=== PATIENT | male | born 1980 | race African-American/Black ===

== ENCOUNTER 2018-06-30 09:32 | Emergency (ER) | payer BC, SELFPAY ==
--- NOTE | 2018-06-30 09:50 | EDPHYS ---
Physician Documentation [facility] Name: [place] Age: 37 yrs Sex: Male : 1980 Arrival Date: 06/30/2018 Time: 09:37 Bed 14 Private MD: None, None ED Physician Myke Prince HPI: 06/30 09:48 This 37 yrs old Black Male presents to ER via Ambulatory with complaints of Cough. jr8 09:48 The patient or guardian reports cough, that is intermittent, described as mild, with no jr8 sputum. Onset: The symptoms/episode began/occurred acutely, 6 day(s) ago. Severity of symptoms: At their worst the symptoms were mild, in the emergency department the symptoms are unchanged. Modifying factors: The symptoms are alleviated by nothing, the symptoms are aggravated by nothing. Associated signs and symptoms: Pertinent positives: rhinorrhea, sore throat. The patient has not experienced similar symptoms in the past. The patient has not recently seen a physician. Historical: - Allergies: 09:44 No Known Allergies; hb - Home Meds: 09:44 None [Active]; hb - PMHx: 09:44 None; hb - PSHx: 09:44 None; hb - Immunization history:: Adult Immunizations up to date. - Social history:: Smoking status: Patient/guardian denies using tobacco. - Ebola Screening: : No symptoms or risks identified at this time. ROS: 09:48 Eyes: Negative for injury, pain, redness, and discharge, Neck: Negative for injury, jr8 pain, and swelling, Cardiovascular: Negative for chest pain, palpitations, and edema, Abdomen/GI: Negative for abdominal pain, nausea, vomiting, diarrhea, and constipation, Back: Negative for injury and pain, MS/Extremity: Negative for injury and deformity, Skin: Negative for injury, rash, and discoloration, Neuro: Negative for headache, weakness, numbness, tingling, and seizure. 09:48 ENT: Positive for rhinorrhea, sinus congestion, sore throat. 09:48 Respiratory: Positive for cough, Negative for dyspnea on exertion, shortness of breath, sputum production, wheezing. Exam: 09:48 Eyes: Pupils equal round and reactive to light, extra-ocular motions intact. Lids and jr8 lashes normal. Conjunctiva and sclera are non-icteric and not injected. Cornea within normal limits. Periorbital areas with no swelling, redness, or edema. ENT: Nares patent. No nasal discharge, no septal abnormalities noted. Tympanic membranes are normal and external auditory canals are clear. Oropharynx with no redness, swelling, or masses, exudates, or evidence of obstruction, uvula midline. Mucous membranes moist. Neck: Trachea midline, no thyromegaly or masses palpated, and no cervical lymphadenopathy. Supple, full range of motion without nuchal rigidity, or vertebral point tenderness. No Meningismus. Cardiovascular: Regular rate and rhythm with a normal S1 and S2. No gallops, murmurs, or rubs. Normal PMI, no JVD. No pulse deficits. Respiratory: Lungs have equal breath sounds bilaterally, clear to auscultation and percussion. No rales, rhonchi or wheezes noted. No increased work of breathing, no retractions or nasal flaring. Abdomen/GI: Soft, non-tender, with normal bowel sounds. No distension or tympany. No guarding or rebound. No evidence of tenderness throughout. Back: No spinal tenderness. No costovertebral tenderness. Full range of motion. Skin: Warm, dry with normal turgor. Normal color with no rashes, no lesions, and no evidence of cellulitis. MS/ Extremity: Pulses equal, no cyanosis. Neurovascular intact. Full, normal range of motion. Neuro: Awake and alert, GCS 15, oriented to person, place, time, and situation. Cranial nerves II-XII grossly intact. Motor strength 5/5 in all extremities. Sensory grossly intact. Cerebellar exam normal. Normal gait. Vital Signs: 09:43 BP 146 / 83; Pulse 82; Resp 16; Temp 97.6(TE); Pulse Ox 97% on R/A; Pain 1/10; hb MDM: 09:44 Patient medically screened. jr8 09:48 Data reviewed: vital signs, nurses notes, and as a result, I will discharge patient. jr8 Data interpreted: Pulse oximetry: on room air is 97 %. Interpretation: normal. Counseling: I had a detailed discussion with the patient and/or guardian regarding: the historical points, exam findings, and any diagnostic results supporting the discharge/admit diagnosis, the need for outpatient follow up, a family practitioner, to return to the emergency department if symptoms worsen or persist or if there are any questions or concerns that arise at home. Administered Medications: No medications were administered Disposition: 14:06 Co-signature as Attending Physician, Myke Prince MD. Disposition: 06/30/18 09:49 Discharged to Home. Impression: Acute upper respiratory infection, unspecified. - Condition is Stable. - Discharge Instructions: Upper Respiratory Infection, Adult. - Prescriptions for Prednisone 20 mg Oral Tablet - take 1 tablet by ORAL route once daily for 5 days; 5 tablet. Guaifenesin AC 10- 100 mg/5 mL Oral Liquid - take 10 milliliter by ORAL route every 4 hours As needed; 240 milliliter. - Medication Reconciliation Form, Thank You Letter, Antibiotic Education, Prescription Opioid Use form. - Follow up: Private Physician; When: As needed; Reason: Recheck today's complaints, Continuance of care, Re-evaluation by your physician. - Problem is new. - Symptoms are unchanged. Signatures: Vadim Sher, PATROL SERGEANT SHERIFF'S OFFICE PATROL SERGEANT [employer]ERIFF'S OFF[employer] em Kyaw Curtis PA PA jr8 Santa Downey RN RN Myke Prince MD MD Corrections: (The following items were deleted from the chart) 10:00 09:49 06/30/2018 09:49 Discharged to Home. Impression: Acute upper respiratory em infection, unspecified. Condition is Stable. Forms are Medication Reconciliation Form, Thank You Letter, Antibiotic Education, Prescription Opioid Use. Follow up: Private Physician; When: As needed; Reason: Recheck today's complaints, Continuance of care, Re-evaluation by your physician. Problem is new. Symptoms are unchanged. jr8
--- NOTE | 2018-06-30 09:50 | ER ---
Nurse's Notes [facility] Name: [place] Age: 37 yrs Sex: Male : 1980 Arrival Date: 06/30/2018 Time: 09:37 Bed 14 Private MD: None, None Diagnosis: Acute upper respiratory infection, unspecified Presentation: 06/30 09:42 Presenting complaint: Nonproductive cough and pain with cough x 1 week. Denies fever. hb Transition of care: patient was not received from another setting of care. Onset of symptoms was June 25, 2018. Risk Assessment: Do you want to hurt yourself or someone else? Patient reports no desire to harm self or others. Initial Sepsis Screen: Does the patient meet any 2 criteria? No. Patient's initial sepsis screen is negative. Does the patient have a suspected source of infection? No. Patient's initial sepsis screen is negative. Care prior to arrival: None. 09:42 Method Of Arrival: Ambulatory hb 09:42 Acuity: ADRIANA 4 hb Historical: - Allergies: 09:44 No Known Allergies; hb - Home Meds: 09:44 None [Active]; hb - PMHx: 09:44 None; hb - PSHx: 09:44 None; hb - Immunization history:: Adult Immunizations up to date. - Social history:: Smoking status: Patient/guardian denies using tobacco. - Ebola Screening: : No symptoms or risks identified at this time. Screenin:44 Abuse screen: Denies threats or abuse. Denies injuries from another. Nutritional hb screening: No deficits noted. Tuberculosis screening: No symptoms or risk factors identified. Fall Risk None identified. Assessment: 09:51 General: Appears in no apparent distress. comfortable, Behavior is calm, cooperative. iw Pain: Denies pain. Neuro: Level of Consciousness is awake, alert, obeys commands, Oriented to person, place, time, situation, Moves all extremities. Full function. Cardiovascular: Heart tones S1 S2 present. Respiratory: Airway is patent Breath sounds are clear bilaterally. GI: Abdomen is non-distended. Derm: Skin is intact, is healthy with good turgor. Musculoskeletal: Range of motion: intact in all extremities. Vital Signs: 09:43 BP 146 / 83; Pulse 82; Resp 16; Temp 97.6(TE); Pulse Ox 97% on R/A; Pain 1/10; hb ED Course: 09:37 Patient arrived in ED. mr 09:37 None, None is Private Physician. mr 09:40 Maegan Velez, RN is Primary Nurse. iw 09:43 Triage completed. hb 09:43 Arm band placed on left wrist. hb 09:44 [facility] jr8 09:44 Myke Prince MD is Attending Physician. jr8 09:58 No provider procedures requiring assistance completed. Patient did not have IV access em during this emergency room visit. 09:59 Patient has correct armband on for positive identification. Bed in low position. Call em light in reach. Administered Medications: No medications were administered Outcome: 09:49 Discharge ordered by . jr8 09:58 Discharged to home ambulatory. em 09:58 Condition: good 09:58 Discharge instructions given to patient, Instructed on discharge instructions, follow up and referral plans. medication usage, Demonstrated understanding of instructions, follow-up care, medications, Prescriptions given X 2. 10:00 Patient left the ED. em Signatures: Jennifer Ji mr Sher, Vadim, CASH ACCOUNTANT CASH ACCOUNTANT em Maegan Velez, RN RN Kyaw Curtis PA PA jr Santa Downey RN RN
== END 2018-06-30 10:00 | disposition home or self-care (01) ==
LOC: ER 09:32
DX: J06.9 Acute upper respiratory infection, unspecified (principal)
CPT/HCPCS: 99282

== ENCOUNTER 2018-09-03 15:09 | Emergency (ER) | payer SELFPAY ==
--- OUTSIDE RECORDS SUMMARY | 2018-09-03 15:12 | XMS REPORT ---
:1980 [facility] [address] [place] [address] Care Team Providers Name Role Phone Unavailable Unavailable Unavailable Problems This patient has no known problems. Allergies, Adverse Reactions, Alerts This patient has no known allergies or adverse reactions. Medications This patient has no known medications.
[2018-09-03] MEDS ORDERED: MORPHINE 4 MG/ML SYR ONE (16:15)
[2018-09-03] MEDS ORDERED: LIDOCAINE 1% MPF 5 ML VIAL ONE (16:15)
[2018-09-03] MEDS ORDERED: BUPIVACAINE 0.5% PF 10 ML VIAL ONE (16:16)
[2018-09-03] MEDS ORDERED: ONDANSETRON 4 MG/2 ML VIAL ONE (16:16)
[2018-09-03 16:22] LABS: Absolute Lymphocytes (CBC) 2.1 K/uL (0.7-4.9); Absolute Monocytes 0.6 K/uL (0.1-1.3); Absolute Neutrophil 4.8 K/uL (1.8-8.0); Basophils % 0.8 % (0-1.3); Eosinophils % 2.5 % (0-4.4); Hematocrit 43.3 % (39.6-49.0); Lymphocytes % 26.7 % (15.3-44.8); MPV 7.6 fL (7.6-11.3); Monocytes % 7.8 % (3.3-12.3); RBC Red Blood Cell Count 4.72 M/uL (4.33-5.43)
[2018-09-03 16:55] LABS: Potassium 3.6 mmol/L (3.5-5.1)
[2018-09-03] MEDS ORDERED: HYDROCODONE/APAP 10/325 TAB ONE (17:04)
[2018-09-03] MEDS ORDERED: CLINDAMYCIN 900MG/D5W 900 MG/50 ML IVPB IV ONE (17:04)
[2018-09-03] MEDS ORDERED: SMZ./TMP. 800/160 MG TABLET ONE (17:04)
--- NOTE | 2018-09-03 17:37 | ER ---
Nurse's Notes [facility] Name: [place] Age: 37 yrs Sex: Male : 1980 Arrival Date: 09/03/2018 Time: 15:12 Bed 16 Private MD: None, None Diagnosis: Pilonidal cyst with abscess Presentation: 09/03 15:16 Presenting complaint: Patient states: Abscess left side of gluteal cleft, reports pain sg and redness, denies fever, denies nausea/vomiting/diarrhea. Transition of care: patient was not received from another setting of care. Onset of symptoms was September 03, 2018. Risk Assessment: Do you want to hurt yourself or someone else? Patient reports no desire to harm self or others. Initial Sepsis Screen: Does the patient meet any 2 criteria? No. Patient's initial sepsis screen is negative. Care prior to arrival: None. 15:16 Method Of Arrival: Ambulatory sg 15:16 Acuity: ADRIANA 3 sg 15:23 Initial Sepsis Screen: Does the patient have a suspected source of infection? Yes: Skin hj breakdown/wound. Triage Assessment: 15:22 General: Appears in no apparent distress. uncomfortable, Behavior is calm, cooperative, hj appropriate for age. Pain: Complains of pain in buttocks. Historical: - Allergies: 15:16 No Known Allergies; sg - Home Meds: 15:19 None [Active]; sg - PMHx: 15:19 None; sg - PSHx: 15:16 None; sg - Immunization history:: Adult Immunizations not up to date. - Social history:: Smoking status: Patient/guardian denies using tobacco. - Ebola Screening: : Patient negative for fever greater than or equal to 101.5 degrees Fahrenheit, and additional compatible Ebola Virus Disease symptoms Patient denies exposure to infectious person Patient denies travel to an Ebola-affected area in the 21 days before illness onset No symptoms or risks identified at this time. Screenin:22 Abuse screen: Denies threats or abuse. Denies injuries from another. Nutritional hj screening: No deficits noted. Tuberculosis screening: No symptoms or risk factors identified. Fall Risk None identified. Assessment: 15:16 General: Appears in no apparent distress. uncomfortable, Behavior is calm, cooperative, hj appropriate for age. Pain: Complains of pain in buttocks. Neuro: Level of Consciousness is awake, alert, obeys commands, Oriented to person, place, time, situation, Appropriate for age. Cardiovascular: Capillary refill < 3 seconds Patient's skin is warm and dry. Respiratory: Airway is patent Respiratory effort is even, unlabored, Respiratory pattern is regular, symmetrical. GI: No signs and/or symptoms were reported involving the gastrointestinal system. : No signs and/or symptoms were reported regarding the genitourinary system. EENT: No signs and/or symptoms were reported regarding the EENT system. Derm: Abscess located on buttocks. Musculoskeletal: No signs and/or symptoms reported regarding the musculoskeletal system. 16:30 Reassessment: Patient and/or family updated on plan of care and expected duration. Pain hj level reassessed. Patient is alert, oriented x 3, equal unlabored respirations, skin warm/dry/pink. I\T\D performed by JOHANNA Dodge;. 17:23 Reassessment: Patient and/or family updated on plan of care and expected duration. Pain hj level reassessed. Patient is alert, oriented x 3, equal unlabored respirations, skin warm/dry/pink. non adhesive dressing applied with micro foam tape;. Vital Signs: 15:19 Weight 113.4 kg; Height 5 ft. 9 in. (175.26 cm); Pain 7/10; sg 15:25 BP 147 / 77; Pulse 74; Resp 17; Temp 97.7; Pulse Ox 99% on R/A; sg 16:35 BP 125 / 78; Pulse 75; Resp 18; Pulse Ox 100% on R/A; hj 17:23 BP 132 / 75; Pulse 76; Resp 18; Pulse Ox 100% on R/A; hj 15:19 Body Mass Index 36.92 (113.40 kg, 175.26 cm) sg ED Course: 15:12 Patient arrived in ED. sb2 15:12 None, None is Private Physician. sb2 15:16 Arm band placed on. sg 15:19 Triage completed. sg 15:22 Aditya Lopes, SARAH is Primary Nurse. hj 15:23 Cornelio Dodge PA is PHCP. cp 15:23 Myke Prince MD is Attending Physician. cp 15:23 Patient has correct armband on for positive identification. Bed in low position. Call hj light in reach. Side rails up X 1. Adult w/ patient. 17:35 Sebastian Gilman MD is Referral Physician. cp 17:46 No provider procedures requiring assistance completed. IV discontinued, intact, hj bleeding controlled, No redness/swelling at site. Pressure dressing applied. Administered Medications: 16:05 Drug: morphine 4 mg Route: IVP; Site: right antecubital; hj 16:29 Follow up: Response: No adverse reaction; Pain is decreased hj 16:05 Drug: Zofran 4 mg Route: IVP; Site: right antecubital; hj 16:29 Follow up: Response: No adverse reaction hj 16:30 Drug: Lidocaine-Epinephrine -1%: (1:100,000) 5 ml Volume: 20 ml; Route: Infiltration; hj 16:30 Drug: Marcaine (0.5 %) 5 ml Volume: 10 ml; Route: Infiltration; hj 16:51 Drug: Clindamycin 900 mg Route: IVPB; Infused Over: 30 mins; Site: right antecubital; hj 17:05 Follow up: IV Status: Completed infusion hj 16:52 Drug: Bactrim (160 mg-800 mg (DS) 1 tablet Route: PO; hj 17:05 Follow up: Response: No adverse reaction hj 16:52 Drug: HYDROcodone-acetaminophen 10 mg-325 mg 1 tabs Route: PO; hj 17:04 Follow up: Response: No adverse reaction; Pain is decreased hj Outcome: 17:36 Discharge ordered by MD. cp 17:46 Discharged to home ambulatory, with family. hj 17:46 Condition: stable 17:46 Discharge instructions given to patient, family, Instructed on discharge instructions, follow up and referral plans. medication usage, wound care, Demonstrated understanding of instructions, follow-up care, medications, wound care, Prescriptions given X 3. 17:49 Patient left the ED. hj Addendum: 09/07/2018 07:53 Addendum: Culture Results: Positive wound culture. Checked on patient over the phone a a5 per Lina Ross NP. Pt states feeling better, pt states he is continuing to take antibiotics prescribed, pt encouraged to follow-up with PCP, pt verbalized understanding. Signatures: Alex Ferrari RN RN Lucia Naranjo RN RN aa5 Aditya Lopes RN RN Cornelio Dodge PA PA cp Billeau, Gwen sb2
--- NOTE | 2018-09-03 17:37 | EDPHYS ---
Physician Documentation [facility] Name: [place] Age: 37 yrs Sex: Male : 1980 Arrival Date: 09/03/2018 Time: 15:12 Bed 16 Private MD: None, None ED Physician Myke Prince HPI: 09/03 16:00 This 37 yrs old Black Male presents to ER via Ambulatory with complaints of Abscess. cp 16:00 The patient presents with an abscess of the buttocks, the patient presents with a cp swollen area of the buttocks. 16:00 Onset: The symptoms/episode began/occurred gradually. cp 16:00 Possible cause(s): unknown. Associated signs and symptoms: Pertinent negatives: cp discharge, drainage, fever. Severity of symptoms: in the emergency department the symptoms are unchanged, despite home interventions. Historical: - Allergies: 15:16 No Known Allergies; sg - Home Meds: 15:19 None [Active]; sg - PMHx: 15:19 None; sg - PSHx: 15:16 None; sg - Immunization history:: Adult Immunizations not up to date. - Social history:: Smoking status: Patient/guardian denies using tobacco. - Ebola Screening: : Patient negative for fever greater than or equal to 101.5 degrees Fahrenheit, and additional compatible Ebola Virus Disease symptoms Patient denies exposure to infectious person Patient denies travel to an Ebola-affected area in the 21 days before illness onset No symptoms or risks identified at this time. ROS: 16:05 Skin: Positive for abscess, of the buttocks. cp 16:05 Eyes: Negative for injury, pain, redness, and discharge. cp 16:05 Constitutional: Negative for body aches, chills, fever, poor PO intake. 16:05 ENT: Negative for drainage from ear(s), ear pain, sore throat, difficulty swallowing, difficulty handling secretions. 16:05 Respiratory: Negative for cough, shortness of breath, wheezing. 16:05 Abdomen/GI: Negative for abdominal pain, nausea, vomiting, and diarrhea. 16:05 Neuro: Negative for altered mental status, headache, weakness. 16:05 All other systems are negative. Exam: 16:15 Constitutional: The patient appears in no acute distress, alert, awake, non-toxic, well cp developed, well nourished, uncomfortable. 16:15 Head/Face: Normocephalic, atraumatic. cp 16:15 Eyes: Periorbital structures: appear normal, Conjunctiva: normal, Lids and lashes: appear normal, bilaterally. 16:15 ENT: External ear(s): are unremarkable, Nose: is normal, Mouth: is normal, Posterior pharynx: is normal, airway is patent. 16:15 Chest/axilla: Inspection: normal. 16:15 Cardiovascular: Rate: normal. 16:15 Respiratory: the patient does not display signs of respiratory distress, Respirations: normal, no use of accessory muscles, no retractions, no splinting, no tachypnea, labored breathing, is not present. 16:15 Abdomen/GI: Exam negative for discomfort, distension, guarding, Inspection: abdomen appears normal. 16:15 Skin: abscess, that is moderate sized, of the buttocks, with fluctuance, that is mild, with induration. Vital Signs: 15:19 Weight 113.4 kg; Height 5 ft. 9 in. (175.26 cm); Pain 7/10; sg 15:25 BP 147 / 77; Pulse 74; Resp 17; Temp 97.7; Pulse Ox 99% on R/A; sg 16:35 BP 125 / 78; Pulse 75; Resp 18; Pulse Ox 100% on R/A; hj 17:23 BP 132 / 75; Pulse 76; Resp 18; Pulse Ox 100% on R/A; hj 15:19 Body Mass Index 36.92 (113.40 kg, 175.26 cm) sg Procedures: 16:53 I \T\ D: Incision and drainage was performed for an abscess of the pilonidal cyst Prepped cp with Betadine, Anesthetized with 7 ccs of 50/50 mixture 1% lidocaine with epi and 0.5% marcaine. MDM: 15:23 Patient medically screened. cp 17:35 Data reviewed: vital signs, nurses notes, and as a result, I will discharge patient. cp 17:35 Response to treatment: the patient's symptoms have markedly improved after treatment. cp 09/03 15:59 Order name: CBC with Diff cp 09/03 15:59 Order name: BMP cp 09/03 16:25 Order name: CBC with Automated Diff; Complete Time: 21:32 EDMS 09/03 21:32 Interpretation: Reviewed. cp 09/03 16:56 Order name: Basic Metabolic Panel; Complete Time: 21:32 EDMS 09/03 21:33 Interpretation: Normal except: CO2 34; GFR 81. cp 09/03 17:04 Order name: Wound Culture hj 09/03 15:59 Order name: IV; Complete Time: 16:04 cp 09/03 15:59 Order name: I\T\D Setup; Complete Time: 16:11 cp Administered Medications: 16:05 Drug: morphine 4 mg Route: IVP; Site: right antecubital; hj 16:29 Follow up: Response: No adverse reaction; Pain is decreased hj 16:05 Drug: Zofran 4 mg Route: IVP; Site: right antecubital; hj 16:29 Follow up: Response: No adverse reaction hj 16:30 Drug: Lidocaine-Epinephrine -1%: (1:100,000) 5 ml Volume: 20 ml; Route: Infiltration; hj 16:30 Drug: Marcaine (0.5 %) 5 ml Volume: 10 ml; Route: Infiltration; hj 16:51 Drug: Clindamycin 900 mg Route: IVPB; Infused Over: 30 mins; Site: right antecubital; hj 17:05 Follow up: IV Status: Completed infusion hj 16:52 Drug: Bactrim (160 mg-800 mg (DS) 1 tablet Route: PO; hj 17:05 Follow up: Response: No adverse reaction hj 16:52 Drug: HYDROcodone-acetaminophen 10 mg-325 mg 1 tabs Route: PO; hj 17:04 Follow up: Response: No adverse reaction; Pain is decreased Disposition: 09/03/18 17:36 Discharged to Home. Impression: Pilonidal cyst with abscess. - Condition is Stable. - Discharge Instructions: Incision and Drainage, Pilonidal Cyst, Incision and Drainage of a Pilonidal Cyst, Care After, Form - Excuse from Work, School, or Physical Activity. - Prescriptions for Clindamycin HCl 300 mg Oral Capsule - take 1 capsule by ORAL route every 6 hours for 10 days; 40 capsule. Tylenol- Codeine #3 300-30 mg Oral Tablet - take 2 tablets by ORAL route every 6 hours As needed no driving while taking medication; 20 tablet. Bactrim DS 800- 160 mg Oral Tablet - take 1 tablet by ORAL route every 12 hours for 10 days; 20 tablet. - Work release form, Medication Reconciliation Form, Thank You Letter, Antibiotic Education, Prescription Opioid Use form. - Follow up: Sebastian Gilman MD; When: 2 - 3 days; Reason: Wound Recheck. - Problem is new. - Symptoms have improved. Addendum: 09/06/2018 01:35 Co-signature as Attending Physician, Myke Prince MD. g s Signatures: Dispatcher [employer] EDMS Alex Ferrari RN RN Aditya Lopes RN RN Cornelio Beaver PA PA cp Myke Prince MD MD Corrections: (The following items were deleted from the chart) 09/03 17:49 17:36 09/03/2018 17:36 Discharged to Home. Impression: Pilonidal cyst with abscess. hj Condition is Stable. Forms are Medication Reconciliation Form, Thank You Letter, Antibiotic Education, Prescription Opioid Use. Follow up: Dr. Sebastian Gilman; When: 2 - 3 days; Reason: Wound Recheck. Problem is new. Symptoms have improved. cp
== END 2018-09-03 17:49 | disposition home or self-care (01) ==
LOC: ER 15:09
PROC: 0H98XZZ Drainage of Buttock Skin, External Approach (ICD-10-PCS; principal; 2018-09-03)
DX: L05.01 Pilonidal cyst with abscess (principal)
CPT/HCPCS: 36415; 80048; 85025; 87070; 87077; 87186; 87205; 96374; 96375; 99283; J2405

== ENCOUNTER 2021-12-05 09:38 | Emergency (ER) | payer BC, SELFPAY ==
--- OUTSIDE RECORDS SUMMARY | 2021-12-05 09:42 | XMS REPORT | Continuity of Care Document ---
:1980 Author Organization [facility] t Address [address] [place] [address] Care Team Providers Name Role Phone PCP, DOES NOT HAVE A Primary Care Physician Unavailable Damaris SMITH, T Attending Clinician Unavailable Only, Db Test Attending Clinician Unavailable Unknown Attending Clinician Unavailable BOWEN Attending Clinician Unavailable Jay Jay Attending Clinician Unavailable Physician, Primary or Family Admitting Clinician Unavailabl e Payers Payer Name Policy Type Policy Number Effective Date Expiration Date S ource Problems This patient has no known problems. Allergies, Adverse Reactions, Alerts Allergy Allergy Status Severity Reaction(s) Onset Inactive Treating Comm ents Source Name Type Date Date Clinician No Known DA Active U 2016-0 [facility] 00:00: Anderson 00 [facility] No Known DA Active U 2017-0 [facility] Allergie - Clear s 00:00: Anderson 00 [facility] NO KNOWN Drug Active Univers ALLERGIE Class ity of [facility] Social History Social Habit Start Date Stop Date Quantity Comments Source Exposure to Yes [facility] SARS-CoV-2 (event) Medica l Branch Sex Assigned At [birth year] [facility] 00:00:00 00:00:00 [facility] Smoking Status Start Date Stop Date Source Unknown if ever smoked [facility] Medications Ordered Filled Start Stop Current Ordering Indication Dosage Frequency Signature Comments Components Source Medication Medication Date Date Medication? Clinician (SIG) Name Name wilbur 2018- Yes 5mL Take 5 mL U nivers ifenesin 2-28 by mouth ity of 10-100 mg/5 00:00: every 6 Bao as mL solution 00 (six) Medical hours as Branch needed for Cough. codeine-gua 2017- Yes 5mL Take 5 mL U nivers ifenesin 2-28 by mouth ity of 10-100 mg/5 00:00: every 6 Bao as mL solution 00 (six) Medical hours as Branch needed for Cough. Procedures This patient has no known procedures. Encounters Start End Encounter Admission Attending Care Care Encounter Source Date/Time Date/Time Type Type Clinicians Facility Department ID 2020-04-10 Inpatient [facility] [id number] [facility] 00:08:00 [id number] [facility] 2021-08-25 2021-08-25 Letter KAYLIE Ocampo [id number] Univers 00:00:00 00:00:00 (Out) Gail KWOK [id number] it y of [facility] [id number] Bao as [id number] [address] 2021-08-23 2021-08-23 Laboratory Only, Ang Db Test [facility] 1.2.8 [id number] [id number] Univers 12:45:00 13:00:00 Only Unknown, Attending HEALTH [id number] ity [facility] [id number] Bao as MARLA?BLEA [phone] [address] MEDICAL OFFICE BUILDING 2021-08-23 2021-08-23 Outpatient Jolene [facility] [id number] Univers 12:45:00 12:32:43 FRANCIS ity of [facility] 2020-04-11 2020-04-11 Outpatient TREMAYNE GoyalCL LABO [id number] [facility] 06:52:00 06:52:00 Serenity [id number] Psychiatric Results Test Description Test Time Test Comments Results Result Comments Source BASIC METABOLIC PANEL 2020-04-11 06:03:00 Test Item Value Reference Range Interpretation Comme nts SODIUM (test code = NA) 141 mmol/L 134-147 N POTASSIUM (test code = K) 3.6 mmol/L 3.4-5.0 N CHLORIDE (test code = CL) 108 mmol/L 100-108 N CARBON DIOXIDE (test code = CO2) 29 mmol/L 21-32 N ANION GAP (test code = GAP) 4.0 GAP calc 4.0-15.0 N GLUCOSE (test code = GLU) 99 MG/DL 70-110 N BLOOD UREA NITROGEN (test code = BUN) 12 MG/DL 7-18 N GLOMERULAR FILTRATION RATE (test code = GFR) >=60 max estimate estG FR >60 CREATININE (test code = CREAT) 0.8 MG/DL 0.8-1.3 N CALCIUM (test code = CA) 7.9 MG/DL 8.5-10.1 L CREATINE KINASE (CK)2020-04-11 06:03:00 Test Item Value Reference Range Interpretation Comments CREATINE KINASE (CK) (test code = 494 Unit/L 26-192 H CK) [id number] 13:53:00 Test Item Value Reference Range Interpretation Comments GLYCOSYLATED HEMOGLOBIN (HA1C) 5.3 % A1C 0.0-5.7 N (test code = GLYHGB) ESTIMATED AVERAGE GLUCOSE (test 105 MG/DLest code = EAG) LIPID PROFILE (CORONARY RISK)2020-04-10 13:40:00 Test Item Value Reference Range Interpretation Comments TRIGLYCERIDES (test code = TRIG) 88 MG/DL 0-150 N CHOLESTEROL (test code = CHOL) 197 MG/DL 133-200 N CHOLESTEROL/HDL RATIO (test code = 4.93 RATIO >0 CHOLHDL) HDL CHOLESTEROL (test code = HDL) 40 MG/DL 40-59 N NON-HDL CHOLESTEROL (test code = 157 mg/dL <130 H NHDL) LIPOPROTEIN LDL (test code = LDL) 154 MG/DL 0-129 H LDL/HDL (test code = LDL/HDL) 3.85 Ratio 1.48-3.22 Avg H DRUGS OF ABUSE SCREEN [id number] 12:04:00 Test Item Value Reference Range Interpretation Comments URN COCAINE (test code = NEGATIVE SCcutoff <300 NG/ML COCAURN) URN CANNABINOIDS (test code NEGATIVE SCcutoff <50 NG/ML = CANNABURN) URN AMPHETAMINE (test code NEGATIVE SCcutoff <1000 NG/ML = AMPHETURN) URN BARBITURATE (test code NEGATIVE SCcutoff <200 NG/ML = BARBITURN) URN BENZODIAZEPINE (test NEGATIVE SCcutoff <200 NG/ML code = BENZOURN) URN OPIATES (test code = NEGATIVE SCcutoff <2000 NG/ML OPIATURN) URN PHENCYCLIDINE (PCP) NEGATIVE SCcutoff <25 NG/ML (test code = PHENCURN) URN METHADONE (test code = NEGATIVE SCcutoff <300 NG/ML METHAURN) [id number] 10:17:00 Test Item Value Reference Range Interpretation Comments ALCOHOL (test code = ALC) 6 MG/DL 0-10 N [id number] 06:54:00 Test Item Value Reference Range Interpretation Comments TROPONIN-I (test < 0.015 NG/ML 0.000-0.045 N Negative: </= 0.045 code = TROPI) Positive: >/= 0.046 Correlation wit h serial results, other cardiac markers, and cl inical findings is nec essary to determine the c linical significance of this result. Quantit ative results using d ifferent methodologies s hould not be compared to one another as nume rical results may agapito yby method. Completed by Nursing: [id number] 03:48:00 Test Item Value Reference Range Interpretation Comments TROPONIN-I (test < 0.015 NG/ML 0.000-0.045 N Negative: </= 0.045 code = TROPI) Positive: >/= 0.046 Correlation wit h serial results, other cardiac markers, and cl inical findings is nec essary to determine the c linical significance of this result. Quantit ative results using d ifferent methodologies s hould not be compared to one another as nume rical results may agapito yby method. Completed by Nursing: NOCOVID 19 INHOUSE [id number] 01:15:00 Test Item Value Reference Range Interpretation Comments COVID 19 INHOUSE AG NEGATIVE Negative Per manu facturer, (test code = negative result s should [id number]) be treated aspr esumptive and, if inconsi stent with clinical signs andsymptoms or necessary for patient man agement, should betested with an alternative mol ecular assay. Negative resultsdo not preclude SA RS-CoV-2 infection and s hould not be usedas the s ole basis for patient man agement decisions. Neg ative results should be considered in t he context of apatient's r ecent exposures, hist ory, presence of cli nicalsigns and symptoms co nsistent with COVID-19. Emergent procedure? NOBASIC METABOLIC [id number] 00:57:00 Test Item Value Reference Range Interpretation Comments SODIUM (test code = NA) 141 mmol/L 134-147 N POTASSIUM (test code = 3.3 mmol/L 3.4-5.0 L K) CHLORIDE (test code = 106 mmol/L 100-108 N CL) CARBON DIOXIDE (test 29 mmol/L 21-32 N code = CO2) ANION GAP (test code = 6.0 GAP calc 4.0-15.0 N GAP) GLUCOSE (test code = 93 MG/DL 70-110 N GLU) BLOOD UREA NITROGEN 17 MG/DL 7-18 N (test code = BUN) GLOMERULAR FILTRATION >=60 max estimate >60 RATE (test code = GFR) estGFR CREATININE (test code = 1.1 MG/DL 0.8-1.3 N CREAT) CALCIUM (test code = CA) 8.4 MG/DL 8.5-10.1 L Completed by Nursing: WYATTREATINE KINASE (CK)2020-04-10 00:57:00 Test Item Value Reference Range Interpretation Comments CREATINE KINASE (CK) (test code = 1213 Unit/L 26-192 HH CK) Completed by Nursing: [id number] 00:57:00 Test Item Value Reference Range Interpretation Comments TROPONIN-I (test < 0.015 NG/ML 0.000-0.045 N Negative: </= 0.045 code = TROPI) Positive: >/= 0.046 Correlation wit h serial results, other cardiac markers, and cl inical findings is nec essary to determine the c linical significance of this result. Quantit ative results using d ifferent methodologies s hould not be compared to one another as nume rical results may agapito yby method. Completed by Nursing: NOCBC W/O [id number] 00:32:00 Test Item Value Reference Range Interpretation Comments WHITE BLOOD CELL (test code = WBC) 5.8 K/mm3 3.5-11.0 N RED BLOOD CELL (test code = RBC) 4.69 M/mm3 4.70-6.10 L HEMOGLOBIN (test code = HGB) 15.0 G/DL 12.3-15.9 N HEMATOCRIT (test code = HCT) 42.7 % 35.8-46.7 N MEAN CELL VOLUME (test code = MCV) 91.0 Fl 86.3-98.9 N MEAN CELL HGB (test code = MCH) 32.0 pg 28.9-34.4 N MEAN CELL HGB CONCETRATION (test 35.1 G/DL 32.1-34.5 H code = MCHC) RED CELL DISTRIBUTION WIDTH (test 12.0 SD 11.5-14.5 N code = RDW) PLATELET COUNT (test code = PLT) 233 K/mm3 150-450 N MEAN PLATELET VOLUME (test code = 9.30 fL 7.0-9.6 N MPV)
[2021-12-05] MEDS ORDERED: TETRACAINE HCL 0.5% 4ML OPTH ONE (10:22)
[2021-12-05] MEDS ORDERED: FLUORESCEIN SODIUM 1 MG/WRAP ONE (10:22)
--- NOTE | 2021-12-05 10:26 | EDPHYS ---
Physician Documentation [facility] Name: [place] Age: 41 yrs Sex: Male : 1980 Arrival Date: 12/05/2021 Time: 09:41 Bed Treatment Private MD: ED Physician Manfred Lopez HPI: 12/05 10:24 This 41 yrs old Black Male presents to ER via Ambulatory with complaints of Eye Injury. ms3 10:24 The patient is experiencing foreign body sensation, redness. Onset: The ms3 symptoms/episode began/occurred 3 day(s) ago. Duration: the symptoms are continuous. Aggravated by nothing. Alleviated by nothing. Associated signs and symptoms: Pertinent negatives: None. Severity of symptoms: Pain is currently a 2 / 10. Historical: - Allergies: 10:20 No Known Allergies; ph - PMHx: 10:20 None; ph - Immunization history:: Adult Immunizations unknown. - Social history:: Smoking status: Patient denies any tobacco usage or history of. ROS: 10:24 Constitutional: Negative for fever, and chills. Cardiovascular: Negative for chest ms3 pain, and palpitations. Respiratory: Negative for shortness of breath, cough, wheezing, and pleuritic chest pain, Abdomen/GI: Negative for abdominal pain, nausea, vomiting, diarrhea, and constipation, MS/Extremity: Negative for injury and deformity, Skin: Negative for injury, rash, and discoloration, Neuro: Negative for headache, weakness, numbness, tingling. 10:24 Eyes: Positive for foreign body sensation, pain, redness. 10:24 All other systems are negative. Exam: 10:24 Constitutional: This is a well developed, well nourished patient who is awake, alert, ms3 and in no acute distress. Head/Face: Normocephalic, atraumatic. Neck: Trachea midline, no cervical lymphadenopathy. Supple, full range of motion without nuchal rigidity, or vertebral point tenderness. No Meningismus. Chest/axilla: Normal chest wall appearance and motion. Nontender with no deformity. Cardiovascular: Regular rate and rhythm with a normal S1 and S2. No gallops, murmurs, or rubs. Normal PMI, no JVD. No pulse deficits. Respiratory: Lungs have equal breath sounds bilaterally, clear to auscultation and percussion. No rales, rhonchi or wheezes noted. No increased work of breathing, no retractions or nasal flaring. Abdomen/GI: Soft, non-tender, with normal bowel sounds. No distension or tympany. No guarding or rebound. No evidence of tenderness throughout. Skin: Warm, dry with normal turgor. Normal color with no rashes, no lesions, and no evidence of cellulitis. MS/ Extremity: Pulses equal, no cyanosis. Neurovascular intact. Full, normal range of motion. Neuro: Awake and alert, GCS 15, oriented to person, place, time, and situation. Cranial nerves II-XII grossly intact. Motor strength 5/5 in all extremities. Sensory grossly intact. Cerebellar exam normal. Normal gait. 10:24 Eyes: Periorbital structures: appear normal, Pupils: equal, round, and reactive to light and accomodation, Extraocular movements: no acute changes, Conjunctiva: injected, in the right eye, Corneas: abrasion, that is small, on the right, at 5 o'clock, a fluorescein strip employed to appreciate the findings, Visual godinez: are intact. Vital Signs: 10:19 BP 125 / 86; Pulse 75; Resp 18; Temp 98.4; Pulse Ox 99% on R/A; ph Visual Acuity: 19:31 ; not done ll1 MDM: 10:24 Patient medically screened. ms3 10:24 Differential diagnosis: Corneal abrasion of Data reviewed: vital signs, nurses notes. ms3 Counseling: I had a detailed discussion with the patient and/or guardian regarding: the historical points, exam findings, and any diagnostic results supporting the discharge/admit diagnosis, the need for outpatient follow up, to return to the emergency department if symptoms worsen or persist or if there are any questions or concerns that arise at home. ED course: Discussed PE findings with patient. Patient to follow up with Dr Celis as discussed. Patient understands/ agrees with plan. All questions answered. Return precautions given to include worsening symptoms, or any other oncerns.. Administered Medications: 10:22 Drug: Tetracaine Solution (0.5 %) 1 units Route: Topical; Site: right eye; ph 19:31 Follow up: Response: No adverse reaction ll1 10:22 Drug: Fluorescein Strip 1 strip Route: Ophthalmic; Site: right eye; ph 19:31 Follow up: Response: No adverse reaction ll1 Disposition Summary: 12/05/21 10:25 Discharge Ordered Location: Home ms3 Problem: new ms3 Symptoms: are unchanged ms3 Condition: Stable ms3 Diagnosis - Injury of conjunctiva and corneal abrasion without foreign body, right eye ms3 Followup: ms3 - With: Felipe Celis MD - When: 1 - 2 days - Reason: Recheck today's complaints Discharge Instructions: - Discharge Summary Sheet ms3 - Corneal Abrasion, [id number] ms3 Forms: - Medication Reconciliation Form ms3 - Thank You Letter ms3 - Antibiotic Education ms3 - Prescription Opioid Use ms3 Prescriptions: - Erythromycin 5 mg/gram (0.5 %) Ophthalmic Ointment - apply 1 centimeter by OPHTHALMIC route 2-3 times daily for 7 days; 1 tube; ms3 Refills: 0, Product Selection Permitted Signatures: Leana Arredondo RN RN Manfred Smith DO DO ms3 Michael Underwood RN ll1
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
[2021-12-05 10:51] VITALS: BP 125/86; TEMP 98.4; O2SAT 99
== END 2021-12-05 10:45 | disposition home or self-care (01) ==
LOC: ER 09:38
DX: S05.01XA Injury of conjunctiva and corneal abrasion without foreign body, right eye, initial encounter (principal)
CPT/HCPCS: 99283

== ENCOUNTER 2023-06-07 19:06 | Emergency (ER) | payer BC ==
[2023-06-07] MEDS ORDERED: LIDOCAINE 1% MPF 5 ML VIAL ONE (20:56)
--- OUTSIDE RECORDS SUMMARY | 2023-06-07 21:01 | XMS REPORT | Continuity of Care Document ---
:1980 Author Organization [facility] t Address [address] [facility] [address] [place] [address] Care Team Providers Name Role Phone PCP, PATIENT DOES NOT HAVE A Primary Care Physician Unavaila gladis Ocampo RN, Gail Oconnell Attending Clinician Unavailable Only, Ang Db Test Attending Clinician Unavailable Unknown, Attending Attending Clinician Unavailable UNKNOWN, ATTENDING Attending Clinician Unavailable FRANCIS WISEMAN Attending Clinician Unavailable Doctor Unassigned, University Attending Clinician Unavailable Serenity Goyal Attending Clinician Unavailable Physician, No Primary or Family Admitting Clinician Unavailluis griffith Payers Payer Name Policy Type Policy Number Effective Date Expiration Date S ource Problems This patient has no known problems. Allergies, Adverse Reactions, Alerts Allergy Allergy Status Severity Reaction(s) Onset Inactive Treating Comm ents Source Name Type Date Date Clinician No Known DA Active U [facility] All[facility]ie 02-13 Clear s 00:00: Anderson 00 [facility] No Known DA Active U [facility] Allergie 02-13 Clear s 00:00: Anderson 00 [facility] NO KNOWN Drug Active Univers ALLERGIE Class ity [facility] Social History Social Habit Start Date Stop Date Quantity Comments Source Exposure to Yes [facility] SARS-CoV-2 (event) Medica l Branch Sex Assigned At [birth year] [facility] 00:00:00 00:00:00 Medical Branch Smoking Status Start Date Stop Date Source Unknown if ever smoked [facility] Medications Ordered Filled Start Stop Current Ordering Indication Dosage Frequency Signature Comments Components Source Medication Medication Date Date Medication? Clinician (SIG) Name Name wilbur 2017-08 Yes 5mL Take 5 mL U nivers ifenesin 2-28 by mouth ity of 10-100 mg/5 00:00: every 6 Bao as mL solution 00 (six) Medical hours as Branch needed for Cough. wilbur 2017-08 Yes 5mL Take 5 mL U nivers ifenesin 2-28 by mouth ity of 10-100 mg/5 00:00: every 6 Bao as mL solution 00 (six) Medical hours as Branch needed for Cough. Procedures This patient has no known procedures. Encounters Start End Encounter Admission Attending Care Care Encounter Source Date/Time Date/Time Type Type Clinicians Facility Department ID 2020-04-10 Inpatient [facility] [id number] [facility] 00:08:00 93 [facility] 2023-03-20 2023-03-20 Outpatient [facility] [id number] [place] 00:00:00 00:00:00 [facility] 2021-08-25 2021-08-25 Letter KAYLIE Ocampo [id number] Univers 00:00:00 00:00:00 (Out) Gail KWOK [id number] it y of [facility] [id number] Bao as [id number] [address] 2021-08-23 2021-08-23 Laboratory Only, Ang Db Test [facility] 1.2.8 40.114 [id number] Univers 12:45:00 13:00:00 Only Unknown, Attending [facility] [id number] ity [facility] [id number] Bao as MARLA?BLEA [phone] [facility] [address] MEDICAL OFFICE BUILDING 2021-08-23 2021-08-23 Outpatient R ANGELLA, [facility] [id number] Univers 12:45:00 12:45:00 ATTENDING ity [facility] 2021-08-23 2021-08-23 Outpatient R BOWEN, [facility] [id number] Univers 12:45:00 12:32:43 FRANCIS ity of [facility] 2021-08-23 2021-08-23 Orders Doctor KAYLIE [id number] Univers 00:00:00 00:00:00 Only Unassigned, SUNDAR [id number] ity of University [facility] [id number] Bao as [id number] [address] 2020-04-11 2020-04-11 Outpatient JOSE Goyal LABO [id number] [facility] 06:52:00 06:52:00 [place] 17 [facility] Results Test Description Test Time Test Comments [...] code = 494 Unit/L 26-192 H CK) [id number] 13:53:00 Test Item Value Reference Range Interpretation [...] 1.48-3.22 Avg H DRUGS OF ABUSE SCREEN [id number] 12:04:00 Test Item Value Reference Range Interpretation [...] code = NEGATIVE SCcutoff <300 NG/ML MET[place]URN) [id number] 10:17:00 Test Item Value Reference Range Interpretation Comments ALCOHOL (test code = ALC) 6 MG/DL 0-10 N [id number] 06:54:00 Test Item Value Reference Range Interpretation [...] may agapito yby method. Completed by Nursing: [id number] 03:48:00 Test Item Value Reference Range Interpretation [...] method. Completed by Nursing: NOCOVID 19 INHOUSE [id number] 01:15:00 Test Item Value Reference Range Interpretation Comments COVID 19 INHOUSE AG NEGATIVE Negative Per manu facturer, (test code = negative result s should [id number]) be treated aspr esumptive and, if inconsi stent with clinical signs andsymptoms or necessary for patient man agement, should betested with an alternative mol ecular assay. Negative resultsdo not preclude SA RS-CoV-2 infection and s hould not be usedas the s ole basis for patient man agement decisions. Nega tive results should be considered in t he context of apatient's r ecent exposures, hist ory, presence of cli nicalsigns and symptoms co nsistent with COVID-19. Emergent procedure? NOBASIC METABOLIC [id number] 00:57:00 Test Item Value Reference Range Interpretation [...] 8.4 MG/DL 8.5-10.1 L Completed by Nursing: NOCREATINE KINASE (CK)2020-04-10 00:57:00 Test Item Value Reference Range Interpretation Comments CREATINE KINASE (CK) (test code = 1213 Unit/L 26-192 HH CK) Completed by Nursing: [id number] 00:57:00 Test Item Value Reference Range Interpretation [...] yby method. Completed by Nursing: NOCBC W/O [id number] 00:32:00 Test Item Value Reference Range Interpretation [...]
--- NOTE | 2023-06-07 21:03 | EDPHYS ---
Physician Documentation [facility] Name: [place] Age: 42 yrs Sex: Male : 1980 Arrival Date: 06/07/2023 Time: 19:06 Bed 10 Private MD: ED Physician Tono Narayan HPI: 06/08 02:10 This 42 yrs old Black Male presents to ER via Ambulatory with complaints of Metal In sb4 Thumb. 02:10 The patient or guardian reports the patient has a suspected foreign body, of the left sb4 thumb. The reported likely foreign body is a piece of metal. Onset: The symptoms/episode began/occurred 2 year(s) ago, and became worse yesterday. Current symptoms: pain, in the area of the foreign body. Treatment Prior to Arrival: tried to remove, but couldn't get out. The patient has not experienced similar symptoms in the past. The patient has not recently seen a physician. Historical: - Allergies: 06/07 19:27 No Known Allergies; lg3 - Home Meds: 19:27 methylprednisolone 4 mg Oral Tablet, Dose Pack [Active]; lg3 - PMHx: 19:27 None; lg3 - PSHx: 19:27 None; lg3 - Immunization history:: Adult Immunizations up to date, Client reports receiving the 2nd dose of the Covid vaccine, Last tetanus immunization: < 10 years ago Flu vaccine is not up to date. - Social history:: Smoking status: Patient denies any tobacco usage or history of. Patient uses alcohol, occasionally. Patient/guardian denies using street drugs. ROS: 06/08 02:12 Constitutional: Negative for fever, chills, and weight loss, sb4 Skin: Positive for Skin: Positive for FB in left thumb, All other systems are negative, Exam: 02:12 Constitutional: This is a well developed, well nourished patient who is awake, alert, sb4 and in no acute distress. Head/Face: Normocephalic, atraumatic. Eyes: Extra-ocular motions intact. Periorbital areas with no swelling, redness, or edema. ENT: Mucous membranes moist. MS/ Extremity: Pulses equal, no cyanosis. Neurovascular intact. Full, normal range of motion. Neuro: Awake and alert, GCS 15, oriented to person, place, time, and situation. Motor strength 5/5 in all extremities. Sensory grossly intact. 02:12 Skin: injury, small metal FB protruding from palmar aspect of distal left thumb, Vital Signs: 06/07 19:25 BP 123 / 88; Pulse 71; Resp 17 S; Temp 98.1(O); Pulse Ox 98% on R/A; Weight 108.86 kg lg3 (R); Height 5 ft. 9 in. (R); Pain 0/10; 19:25 Body Mass Index 35.44 (108.86 kg, 175.26 cm) lg3 19:25 Pain Scale: Adult lg3 Procedures: 06/08 02:12 Foreign Body Removal: a piece of metal, from the left palmar aspect of distal phalanx sb4 of left thumb, by using a hemostat, incising to remove, using lidocaine 1% with epinephrine to anesthesize the area, Dressing: none, The patient tolerated the removal well. MDM: 06/07 20:17 Patient medically screened. sb4 06/08 02:12 Data reviewed: vital signs, nurses notes, and as a result, I will discharge patient. sb4 Test considered but Not performed: X-ray: not indicated, FB been in thumb for 2 years. Counseling: I had a detailed discussion with the patient and/or guardian regarding the historical points, exam findings, and any diagnostic results supporting the discharge/admit diagnosis, to return to the emergency department if symptoms worsen or persist or if there are any questions or concerns that arise at home. Administered Medications: 06/07 21:05 Drug: Lidocaine Infiltration (1 %) 5 ml 5 ml Infiltration once; to bedside {Note: by ap3 PA. Melba} Volume: 5 ml; Route: Infiltration; Disposition Summary: 06/07/23 21:03 Discharge Ordered Notes: Location: Home sb4 Problem: new sb4 Symptoms: have improved sb4 Condition: Stable sb4 Diagnosis - removal of foreign body, left thumb sb4 Followup: sb4 - With: Private Physician - When: As needed - Reason: Trouble breathing, Worsening of condition Forms: - Medication Reconciliation Form sb4 - Thank You Letter sb4 - Antibiotic Education sb4 - Prescription Opioid Use sb4 - Patient Portal Instructions sb4 - Leadership Thank You Letter sb4 Addendum: 06/08/2023 21:53 Co-signature as Attending Physician, Tono Narayan MD. e c2 Signatures: Laurel Osman RN RN ap3 Teri Edmonds RN RN lg3 Kae Dias, PAVita PA-Ceci sb4 Tono Narayan MD MD ec2
--- NOTE | 2023-06-07 21:03 | ER ---
Nurse's Notes [facility] Name: [place] Age: 42 yrs Sex: Male : 1980 Arrival Date: 06/07/2023 Time: 19:06 Bed 10 Private MD: Diagnosis: removal of foreign body, left thumb Presentation: 06/07 19:25 Chief complaint: Patient states: piece of metal in my left thumb for 2 years and its lg3 starting to finally come out. Coronavirus screen: Client denies travel out of the [place] in the last 14 days. At this time, the client does not indicate any symptoms associated with coronavirus-19. Ebola Screen: No symptoms or risks identified at this time. Initial Sepsis Screen: Does the patient meet any 2 criteria? No. Patient's initial sepsis screen is negative. Does the patient have a suspected source of infection? No. Patient's initial sepsis screen is negative. Risk Assessment: Do you want to hurt yourself or someone else? Patient reports no desire to harm self or others. Onset of symptoms is unknown. 19:25 Method Of Arrival: Ambulatory lg3 19:25 Acuity: ADRIANA 4 lg3 Triage Assessment: 19:27 General: Appears in no apparent distress. comfortable, Behavior is calm, cooperative. lg3 Pain: Denies pain. EENT: No deficits noted. No signs and/or symptoms were reported regarding the EENT system. Neuro: No deficits noted. Herrera Agitation-Sedation Scale (RASS): 0 - Alert and Calm Level of Consciousness is awake, alert, obeys commands, Oriented to person, place, time, situation. Cardiovascular: No deficits noted. Denies chest pain, shortness of breath, Capillary refill < 3 seconds Clubbing of nail beds is absent JVD is absent Patient's skin is warm and dry. Respiratory: No deficits noted. Airway is patent Respiratory effort is even, unlabored, Respiratory pattern is regular, symmetrical. GI: No deficits noted. No signs and/or symptoms were reported involving the gastrointestinal system. : No deficits noted. No signs and/or symptoms were reported regarding the genitourinary system. Derm: Skin is intact, is healthy with good turgor, Skin is dry, Skin is normal, Skin temperature is warm foreign body in left thumb Denies pain. Musculoskeletal: No deficits noted. No signs and/or symptoms reported regarding the musculoskeletal system. Circulation, motion, and sensation intact. Range of motion: intact in all extremities. Historical: - Allergies: 19:27 No Known Allergies; lg3 - Home Meds: 19:27 methylprednisolone 4 mg Oral Tablet, Dose Pack [Active]; lg3 - PMHx: 19:27 None; lg3 - PSHx: 19:27 None; lg3 - Immunization history:: Adult Immunizations up to date, Client reports receiving the 2nd dose of the Covid vaccine, Last tetanus immunization: < 10 years ago Flu vaccine is not up to date. - Social history:: Smoking status: Patient denies any tobacco usage or history of. Patient uses alcohol, occasionally. Patient/guardian denies using street drugs. Screenin:15 [facility] ED Fall Risk Assessment (Adult) History of falling in the last 3 months, kl including since admission No falls in past 3 months (0 pts) Confusion or Disorientation No (0 pts) Intoxicated or Sedated No (0 pts) Impaired Gait No (0 pts) Mobility Assist Device Used No (0 pt) Altered Elimination No (0 pt) Score/Fall Risk Level 0 - 2 = Low Risk Oriented to surroundings, Maintained a safe environment. Abuse screen: Denies threats or abuse. Nutritional screening: No deficits noted. Tuberculosis screening: No symptoms or risk factors identified. Assessment: 21:14 Reassessment: Patient appears in no apparent distress at this time. Patient states kl feeling better. Patient states symptoms have improved. Vital Signs: 19:25 BP 123 / 88; Pulse 71; Resp 17 S; Temp 98.1(O); Pulse Ox 98% on R/A; Weight 108.86 kg lg3 (R); Height 5 ft. 9 in. (R); Pain 0/10; 19:25 Body Mass Index 35.44 (108.86 kg, 175.26 cm) lg3 19:25 Pain Scale: Adult lg3 ED Course: 19:09 Patient arrived in ED. mg5 19:27 Triage completed. lg3 19:27 Arm band placed on left wrist. lg3 20:17 Kae Dias PA-C is PHCP. sb4 20:17 Tono Narayan MD is Attending Physician. sb4 21:16 Assist provider with foreign body removal of metal from thumb using tweezers, Set up kl for procedure. Performed by Kae Dias PA-C Dressed with bandaid Patient tolerated well. Patient did not have IV access during this emergency room visit. Administered Medications: 21:05 Drug: Lidocaine Infiltration (1 %) 5 ml 5 ml Infiltration once; to bedside {Note: by apPA. Evie} Volume: 5 ml; Route: Infiltration; Outcome: 21:03 Discharge ordered by . bryan 21:16 Discharged to home ambulatory, 21:16 Condition: stable 21:16 Discharge instructions given to patient, Instructed on discharge instructions, follow up and referral plans. wound care, Demonstrated understanding of instructions, follow-up care, wound care, 21:17 Patient left the ED. kl Signatures: María Elena Underwood RN RN Laurel Moreno RN RN Teri Alberto RN RN lg3 Brown, Sophia, PA-C PA-C sb4 Alysa Petersen 5
[2023-06-07 21:36] VITALS: TEMP 98.2
[2023-06-07 21:37] VITALS: BP 118/67; O2SAT 100
== END 2023-06-07 21:17 | disposition home or self-care (01) ==
LOC: ER 19:06
PROC: 0JCK3ZZ Extirpation of Matter from Left Hand Subcutaneous Tissue and Fascia, Percutaneous Approach (ICD-10-PCS; principal; 2023-06-07)
DX: S61.042A Puncture wound with foreign body of left thumb without damage to nail, initial encounter (principal)
CPT/HCPCS: 99283; 10120; J2001